=== PATIENT | male | born 1975 | race Caucasian/White ===

== ENCOUNTER 2017-01-14 12:06 | Emergency (ER) | payer OTHER ==
--- NOTE | ~2017-01-14 | CT71 ---
[facility] A Service [facility] RADIOLOGY TEXT RESULTS PATIENT: RAKESH VALDIVIA II LOCATION: SED : 77 UNIT #: [id number] AGE: [address]: Caesar Solitario MD SEX: M ORDER DR: [id number] [place] [id number] E MR#: [id number] Acc #: [id number] NAME: ARKESH VALDIVIA : 1975 SEX: M STUDY DATE/TIME: 01/14/2017 12:58 UNIT: SED ROOM: STUDY DESCRIPTION: CT Head Wo Contrast Attending Physician: Caesar Solitario M.D. Ordering Physician: Caesar Solitario M.D. Primary Care Physician: No Primary Care Physician MEDICAL IMAGING REPORT This report is preliminary unless electronic signature is present. EXAM CT head without IV contrast. COMPARISON January 23, 2010. INDICATIONS 41-year-old male with 2 seizures today. Headache. TECHNIQUE This CT exam was performed with one or more of the following radiation dose reduction techniques: automatic exposure control, adjustment of mA and/or kV according to patient size, and iterative reconstruction. FINDINGS Visualized mastoid air cells, middle ears and paranasal sinuses are well-aerated. No acute fractures or suspicious osseous lesions. Normal cerebral volume. No abnormal extraaxial fluid collection or mass effect. No acute intracranial hemorrhage. No evidence of acute ischemia. IMPRESSION Normal exam. Dictated by... Levi Mccarthy M.D. THIS IS AN ELECTRONICALLY VERIFIED REPORT Levi Mccarthy M.D. at 01/19/2017 7:56 PM BLM/pc TD: 01/14/2017 14:29 JOB #: [id number] [facility] A Service [facility] RADIOLOGY TEXT RESULTS PATIENT: RAKESH VALDIVIA II LOCATION: SED : [birth year] UNIT #: [id number] AGE: [address]: Caesar Solitario MD SEX: M ORDER DR: MEDICAL IMAGING REPORT Page 1 of 1
[~2017-01-14 12:06] MED LIST: ALBUTEROL17 GM; ALBUTEROL17 GM INH; ATIVAN PO; BACITRACIN15 GM TP; BACTRIM DS TABL1 TA1 PO; BACTRIM DS TABL1 TAB PO; BENZONATATE PO; DEPAKOTE PO; DICLOFENAC PO; DOXYCYCLINE PO; IBUPROFEN600 MG; IMITREX PO; KEFLEX PO; KLONOPIN PO; LORTAB 7.5-5001 TAB PO; MEDROL PO; MIDRIN CAPSULE1 CAP PO; MOTRIN600 MG PO; SKELAXIN PO; VICODIN 5/500 T1 TAB PO; VICODIN ES 7.51 EACH PO; ZITHROMAX PO
[2017-01-14] MEDS ORDERED: ADDERALL (12:09)
[2017-01-14 12:47] LABS: BASOPHIL# 0.1 X10e3 (0-0.3); BASOPHIL% 0.6 % (0-2.5); EOSINOPHIL% 0.5 % (0.0-7.0); HEMATOCRIT 48.2 % (38.0-50.0); HEMOGLOBIN 16.3 gm/dL (13.0-16.0); LYMPHOCYTE# 1.3 X10e3 (1.0-3.5); LYMPHOCYTE% 15.1 % (17.0-45.0); MEAN CELL VOLUME 91.1 FL (83-96); MEAN CORPUSCULAR HEMOGLOBIN 30.8 PG (28-34); MEAN CORPUSCULAR HGB CONC 33.8 g/dL (30-36); MONOCYTE# 0.7 X10e3 (0-1.0); MONOCYTE% 7.9 % (3.0-12.0); NEUTROPHIL# 6.7 X10e3 (1.5-7.1); NEUTROPHIL% 75.9 % (40-75); PLATELET COUNT 232 X10e3 (140-420); RED BLOOD COUNT 5.29 X10e (3.90-5.60); RED CELL DISTRIBUTION WIDTH 13.5 % (11.0-15.5); WHITE BLOOD COUNT 8.8 X10e3 (4.0-10.5)
[2017-01-14 12:49] LABS: DIFF IND NO
[2017-01-14 13:03] LABS: AMPHETAMINE POS (NEG); BARBITURATES NEG (NEG); BENZODIAZEPINES NEG (NEG); COCAINE NEG (NEG); MARIJUANA POS (NEG); OPIATES NEG (NEG); TRICYCLIC ANTIDEPRESSANTS NEG (NEG); U METHADONE NEG (NEG)
[2017-01-14 13:05] LABS: ALBUMIN SERUM 4.4 g/dL (3.5-5.0); ALKALINE PHOSPHATASE 62 U/L (32-92); ALT (SGPT) 22 U/L (10-40); AST (SGOT) 24 U/L (10-42); BILIRUBIN, DIRECT 0.1 mg/dL (0.0-0.2); BILIRUBIN,INDIRECT 0.4 mg/dL (0.0-0.9); BILIRUBIN,TOTAL 0.5 mg/dL (0.2-2.0); BLOOD UREA NITROGEN 22 mg/dL (9-23); BUN/CREATININE RATIO 18.33; CALCIUM SERUM 9.3 mg/dL (8.4-10.2); CARBON DIOXIDE 23 mmol/L (22-31); CHLORIDE 102 mmol/L (100-111); CREATININE SERUM 1.2 mg/dL (0.6-1.4); GLOM FILT RATE Estimated 75.2 mL/min (>60); GLUCOSE FASTING 141 mg/dL (70-110); POTASSIUM 3.7 mmol/L (3.5-5.1); PROTEIN TOTAL SERUM 7.5 g/dL (6.0-8.3); SODIUM 135 mmol/L (135-145)
[2017-01-14 13:08] LABS: ALCOHOL BLOOD <5 mg/dL (0); DEPAKENE (VALPROIC ACID) <10 UG/ML (50-125)
== END 2017-01-14 14:43 | disposition home or self-care (01) ==
LOC: SED 12:06
PROVIDERS: Emergency Medicine
DX: G40.909 Epilepsy, unspecified, not intractable, without status epilepticus (principal); F17.210 Nicotine dependence, cigarettes, uncomplicated; Z79.899 Other long term (current) drug therapy; Z91.040 Latex allergy status; Z88.5 Allergy status to narcotic agent
CPT/HCPCS: 36415; 70450; 80048; 80076; 80164; 80307; 82947; 85025; 96361; 96365; 96375; 99284; G0480; J1885; J1953

== ENCOUNTER 2017-03-25 11:15 | Inpatient (IN) | payer OTHER ==
[~2017-03-25] VITALS: Ht 175.3 cm; Wt 75.8 kg
--- NOTE | ~2017-03-25 | CR126 ---
[facility] A Service of [facility] RADIOLOGY TEXT RESULTS PATIENT: RAKESH VALDIVIA II LOCATION: [place] [address] : [birth year] UNIT #: [id number] AGE: [address]: Va Rasheed MD SEX: M ORDER DR: [id number] [address] [address] [id number] E MR#: [id number] Acc #: [id number] NAME: RAKESH VALDIVIA : 1975 SEX: M STUDY DATE/TIME: 03/25/2017 12:33 UNIT: SED ROOM: STUDY DESCRIPTION: CR Foot Complete Min 3 View Lt Attending Physician: Young Marie M.D. Ordering Physician: Young Marie M.D. Primary Care Physician: No Primary Care Physician MEDICAL IMAGING REPORT This report is preliminary unless electronic signature is present. EXAM Left foot, 03/25/2017. HISTORY Left foot pain after fall while having seizure this morning. FINDINGS The tarsal, metatarsal, and phalangeal elements are all anatomically normal in position and alignment. There are no articular defects. No fractures or radiopaque foreign bodies in the soft tissues are apparent. IMPRESSION Normal foot. Dictated by... Serafin Ball M.D. THIS IS AN ELECTRONICALLY VERIFIED REPORT Serafin Ball M.D. at 03/27/2017 6:16 AM Sammie TD: 03/26/2017 15:03 JOB #: [id number] MEDICAL IMAGING REPORT Page 1 of 1
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
--- NOTE | ~2017-03-25 | CT71 ---
[facility] A Service [facility] RADIOLOGY TEXT RESULTS PATIENT: RAKESH VALDIVIA II LOCATION: C3A 331-01 : [birth year] UNIT #: [id number] AGE: [address]: Va Rasheed MD SEX: M ORDER DR: [id number] [address] [address] [id number] E MR#: [id number] Acc #: [id number] NAME: RAKESH VALDIVIA : 1975 SEX: M STUDY DATE/TIME: 03/25/2017 12:30 UNIT: SED ROOM: STUDY DESCRIPTION: CT Head Wo Contrast Attending Physician: Young Marie M.D. Ordering Physician: Young Marie M.D. Primary Care Physician: No Primary Care Physician MEDICAL IMAGING REPORT This report is preliminary unless electronic signature is present. EXAM CT scan of the head without contrast, 03/25/2017. HISTORY Patient had several seizures this morning; the last 1 was an hour ago. He also has migraine headache. Patient fell. COMPARISON 01/14/2017 TECHNIQUE Axial noncontrast images were obtained from the skull base to the vertex. This CT exam was performed with one or more of the following radiation dose reduction techniques: automatic exposure control, adjustment of mA and/or kV according to patient size, and iterative reconstruction. FINDINGS Ventricular size and configuration are normal. There is no evidence of acute infarct or hemorrhage. There are no extraaxial fluid collections. No mass lesion or mass effect is seen. There are no skull fractures. IMPRESSION Normal noncontrast head CT. Dictated by... Serafin Ball M.D. THIS IS AN ELECTRONICALLY VERIFIED REPORT Serafin Ball M.D. at 03/27/2017 6:16 AM TAYLOR/chayito [facility] A Service [facility] RADIOLOGY TEXT RESULTS PATIENT: RAKESH VALDIVIA II LOCATION: C3A 331-01 : [birth year] UNIT #: [id number] AGE: [address]: Va Rasheed MD SEX: M ORDER DR: TD: 03/26/2017 15:00 JOB #: [id number] MEDICAL IMAGING REPORT Page 1 of 1
[~2017-03-25 11:15] MED LIST changes: +ADDERALL
[2017-03-25] MEDS ORDERED: DEPAKOTE PO (11:27)
[2017-03-25 12:13] LABS: BASOPHIL# 0.1 X10e3 (0-0.3); BASOPHIL% 0.6 % (0-2.5); EOSINOPHIL% 0.4 % (0.0-7.0); HEMATOCRIT 44.2 % (38.0-50.0); HEMOGLOBIN 15.1 gm/dL (13.0-16.0); LYMPHOCYTE% 8.8 % (17.0-45.0); MEAN CORPUSCULAR HEMOGLOBIN 30.8 PG (28-34); MEAN CORPUSCULAR HGB CONC 34.2 g/dL (30-36); MEAN PLATELET VOLUME 8.9 FL (6.5-11.5); MONOCYTE# 0.6 X10e3 (0-1.0); MONOCYTE% 5.4 % (3.0-12.0); NEUTROPHIL# 9.8 X10e3 (1.5-7.1); NEUTROPHIL% 84.8 % (40-75); PLATELET COUNT 210 X10e3 (140-420); RED BLOOD COUNT 4.91 X10e (3.90-5.60); RED CELL DISTRIBUTION WIDTH 14.2 % (11.0-15.5); WHITE BLOOD COUNT 11.6 X10e3 (4.0-10.5)
[2017-03-25 12:14] LABS: DIFF IND NO
[2017-03-25 12:39] LABS: ALBUMIN SERUM 4.1 g/dL (3.5-5.0); ALKALINE PHOSPHATASE 53 U/L (32-92); ALT (SGPT) 18 U/L (10-40); AST (SGOT) 21 U/L (10-42); BILIRUBIN, DIRECT 0.1 mg/dL (0.0-0.2); BILIRUBIN,INDIRECT 0.4 mg/dL (0.0-0.9); BILIRUBIN,TOTAL 0.5 mg/dL (0.2-2.0); BLOOD UREA NITROGEN 19 mg/dL (9-23); BUN/CREATININE RATIO 17.27; CALCIUM SERUM 9.3 mg/dL (8.4-10.2); CARBON DIOXIDE 26 mmol/L (22-31); CHLORIDE 104 mmol/L (100-111); CREATININE SERUM 1.1 mg/dL (0.6-1.4); GLOM FILT RATE Estimated 83.5 mL/min (>60); GLUCOSE FASTING 105 mg/dL (70-110); POTASSIUM 4.5 mmol/L (3.5-5.1); SODIUM 137 mmol/L (135-145)
[2017-03-25 12:47] LABS: AMPHETAMINE NEG (NEG); BARBITURATES NEG (NEG); BENZODIAZEPINES POS (NEG); COCAINE NEG (NEG); MARIJUANA POS (NEG); OPIATES NEG (NEG); TRICYCLIC ANTIDEPRESSANTS NEG (NEG); U METHADONE NEG (NEG)
[2017-03-25 13:03] LABS: DEPAKENE (VALPROIC ACID) 41 UG/ML (50-125)
[2017-03-25 13:06] LABS: ALCOHOL BLOOD <5 mg/dL (0)
[2017-03-25 13:35] LABS: URINE APPEARANCE CLEAR; URINE BILIRUBIN NEG (NEG); URINE BLOOD NEG (NEG); URINE COLOR YELLOW; URINE GLUCOSE NEG (NORM); URINE KETONE TRACE (NEG); URINE LEUKOCYTE ESTERASE NEG (NEG); URINE NITRATE NEG (NEG); URINE PH 5.5 (5-8); URINE PROTEIN NEG (NEG); URINE SPECIFIC GRAVITY >=1.030 (1.003-1.035); URINE UROBILINOGEN 0.2 MG/DL (NORM)
[2017-03-25 14:04] LABS: MICRO INDICATED? NO; URINE SOURCE CLEAN CATCH
[2017-03-26 05:54] LABS: HEMATOCRIT 41.1 % (38.0-50.0); MEAN CELL VOLUME 91.4 FL (83-96); MEAN CORPUSCULAR HEMOGLOBIN 31.1 PG (28-34); MEAN PLATELET VOLUME 9.7 FL (6.5-11.5); RED BLOOD COUNT 4.5 X10e (3.90-5.60); RED CELL DISTRIBUTION WIDTH 14.2 % (11.0-15.5); WHITE BLOOD COUNT 10.7 X10e3 (4.0-10.5)
[2017-03-26 06:09] LABS: BUN/CREATININE RATIO 20.83; CALCIUM SERUM 9.3 mg/dL (8.4-10.2); CREATININE SERUM 1.2 mg/dL (0.6-1.4); GLOM FILT RATE Estimated 75.2 mL/min (>60); POTASSIUM 4.6 mmol/L (3.5-5.1)
== END 2017-03-26 16:54 | disposition left against medical advice (07) | DRG 101 ==
LOC: SED 11:15 → C3A PCU 13:43 → SED 13:43 → CEDOF 13:43 → C3A PCU 13:43 → CEDOF 13:43 → C3A PCU 19:38
PROVIDERS: Emergency Medicine; Internal Medicine
DX: G40.909 Epilepsy, unspecified, not intractable, without status epilepticus (principal); J44.9 Chronic obstructive pulmonary disease, unspecified; F12.10 Cannabis abuse, uncomplicated; G89.4 Chronic pain syndrome; F41.9 Anxiety disorder, unspecified; F17.200 Nicotine dependence, unspecified, uncomplicated; Z91.040 Latex allergy status; Z88.8 Allergy status to other drugs, medicaments and biological substances
CPT/HCPCS: 36415; 70450; 73630; 80048; 80076; 80164; 80307; 81003; 82947; 85025; 85027; 96361; 96374; 96375; 96376; 99285; G0480; J1100; J1650; J1885; J1953; J2405; J2550